=== PATIENT | male | born 1985 | race American Indian/Alaskan Native ===

== ENCOUNTER 2019-06-10 11:22 | Emergency (ER) | payer SELFPAY ==
[2019-06-10 11:56] LABS: Basophils % (Auto) 0.6 % (0.0-1.8); Eosinophils % (Auto) 0.2 % (0.0-4.3); Hematocrit 45.1 % (35.5-45.6); Hemoglobin 15.3 gm/dl (11.8-15.2); Lymphocytes # (Auto) 0.9 K/mm3 (1.2-5.4); Lymphocytes % (Auto) 20.3 % (13.4-35.0); Mean Corpuscular HGB Conc 34 % (32-34); Mean Corpuscular Volume 96 fl (84-94); Monocytes # (Auto) 0.4 K/mm3 (0.0-0.8); Monocytes % (Auto) 7.8 % (0.0-7.3); Platelet Count 151 K/mm3 (140-440); Red Blood Count 4.72 M/mm3 (3.65-5.03); Red Cell Distribution Width 12.5 % (13.2-15.2)
[2019-06-10 12:09] LABS: BUN/Creatinine Ratio 12; Blood Urea Nitrogen 11 mg/dL (9-20); Calcium 8.9 mg/dL (8.4-10.2); Hemolysis Index 7
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
[2019-06-10 14:25] LABS: Bilirubin,Urine NEG (Negative); Blood,Urine NEG (Negative); Color,Urine Yellow (Yellow); Mucus,Urine 3+ /HPF
[2019-06-10 14:28] LABS: Amphetamine Screen,Urine PRESUMPTIVE NEGATIVE; Benzodiazepines Screen,Urine PRESUMPTIVE NEGATIVE; Cocaine Screen,Urine PRESUMPTIVE NEGATIVE; Methadone Screen,Urine PRESUMPTIVE NEGATIVE; Opiate Screen,Urine PRESUMPTIVE NEGATIVE
[2019-06-10 14:44] LABS: Cannabinoid Screen,Urine PRESUMPTIVE POSITIVE
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
[2019-06-11] MEDS: MELATONIN PO SCH (21:36)
[2019-06-12 07:31] LABS: Chol/HDL Ratio 3.27 %
--- NOTE | 2019-06-12 09:23 | Progress Note ---
Subjective - Reason for Consult Consult date: 06/12/19 Reason for consult: Pyshciatry Follow-up - Chief Complaint Chief complaint: "I don't want to talk to you" 33 y.o. AA male who presented to the ER for acute psychosis. Today the patient was calm, but uncooperative during the assessment. He was observed talking to himself prior to my arrival to his room. I the provider attempted to redirect the patient several times, but was unsuccessful. He stated, 'I don't have anything to say to you." No gestures of SI/HI's. No indications of side effects from his medications. Mental Status Exam - Vital signs Last Vital Signs Temp 97.8 F 06/12/19 07:00 Pulse 72 06/12/19 07:00 Resp 18 06/12/19 07:00 BP 124/83 06/12/19 07:00 Pulse Ox 96 06/12/19 07:00 - Exam Narrative exam: MSE: Appearance: calm Behavior: regular eye contact Speech: regular rate and low tone Mood: somewhat irritable Affect: congruent to mood Thought Process: loose associations Thought Content: No gestures of SI/HI's, delusional, responding to external stimuli Motor Activity: ambulatory Cognition: A/O x 3 Insight: poor Judgment: poor Assessment and Plan Impression: Unspecified Psychosis. Cannabis Use DO. Today the patient was calm, but somewhat disorganized during the assessment. DDx: Bipolar DO with psychosis, Substance Induced Psychosis Recommendation/Plan: Continue 1013, Zyprexa 5 mg PO HS for psychosis, and Melatonin 5 mg PO HS for sleep. Attempted to discuss possible metabolic side effects of Zyprexa with the patient. Dispo: The patient was referred to inpatient psy services. Staffed with Dr Edwar Robert.
[2019-06-12] MEDS ORDERED: IBUPROFEN PO ONE ×2 (12:55→12:58)
[2019-06-12] MEDS: MELATONIN PO SCH (22:12)
--- NOTE | 2019-06-13 14:18 | Progress Note ---
Subjective - Reason for Consult Consult date: 06/13/19 Reason for consult: Psychiatric Follow-up Evaluation - Chief Complaint Chief complaint: "Really good" Patient is a 33 y.o. AA male who presented to the ER for acute psychosis. Today the patient is calm and cooperative during the assessment. Patient reports " I came here trying to get away from my alleged family. They're trying to make me worse than I am." He reports appropriate sleep and appetite. Presents with paranoid delusions toward his family and auditory hallucinations. He reports medication compliance no side effects noted.reported. No indications of side effects from his medications. He denies SI/HI's. Mental Status Exam - Vital signs Last Vital Signs Temp 97.4 F L 06/13/19 07:00 Pulse 72 06/13/19 07:00 Resp 18 06/13/19 07:00 BP 118/70 06/13/19 07:00 Pulse Ox 99 06/13/19 07:00 - Exam Narrative exam: Mental Status Exam Appearance: calm Behavior: regular eye contact Speech: regular rate and low tone Mood: " I'm feel good" Affect: congruent to mood Thought Process: loose associations Thought Content: No gestures of SI/HI's, delusional- paranoid , responding to external stimuli Motor Activity: ambulatory Cognition: A/O x 3 Insight: poor Judgment: poor Assessment and Plan Impression: Unspecified Psychosis. Cannabis Use DO. Today the patient was calm, but somewhat disorganized during the assessment. DDx: Bipolar DO with psychosis, Substance Induced Psychosis Recommendation/Plan: 1. Continue 1013. 2. Continue Zyprexa 5 mg PO HS for psychosis, and Melatonin 5 mg PO HS for sleep. Attempted to discuss possible metabolic side effects of Zyprexa with the patient. Disposition: Patient accepted to [facility]. Awaiting transport time. Staffed with Dr. Edwar Robert.
[2019-06-13] MEDS: MELATONIN PO SCH (22:50)
[2019-06-14 04:04] VITALS: BP 113/76
== END 2019-06-14 06:00 ==
LOC: EEVIPCON 11:22 → ED 11:22
DX: S02.2XXA Fracture of nasal bones, initial encounter for closed fracture (principal); F20.9 Schizophrenia, unspecified; Y04.8XXA Assault by other bodily force, initial encounter; Y93.89 Activity, other specified; Y92.89 Other specified places as the place of occurrence of the external cause; Y99.8 Other external cause status
CPT/HCPCS: 36415; 70450; 70486; 72125; 80048; 80307; 80320; 81001; 85025; 99285; G0480